=== PATIENT | male | born 1965 | race Two or more races ===

== ENCOUNTER 2021-09-01 05:05 | Day surgery (SDC) | payer OTHER ==
[~2021-09-01 05:05] MED LIST: MICARDIS80 MG PO
== END 2021-09-01 11:00 | disposition home or self-care (01) ==
LOC: CIR.AMB 05:05
PROVIDERS: ATTEND Surgery Surgery of the Hand
DX: M65.341 Trigger finger, right ring finger (principal); M67.843 Other specified disorders of tendon, right hand; I10 Essential (primary) hypertension; Z71.6 Tobacco abuse counseling; F17.210 Nicotine dependence, cigarettes, uncomplicated; Z20.822 Contact with and (suspected) exposure to COVID-19